=== PATIENT | male | born 1965 | race Caucasian/White ===

== ENCOUNTER 2018-12-15 09:35 | Emergency (ER) | payer OTHER, MEDICAID ==
[~2018-12-15] VITALS: Ht 185.4 cm; Wt 104.3 kg
[2018-12-15 09:37] VITALS: Ht 185.4 cm; Wt 104.3 kg
[2018-12-15 11:42] VITALS: BP 145/96
== END 2018-12-15 11:42 | disposition home or self-care (01) ==
LOC: ED 09:35
DX: S60.222A Contusion of left hand, initial encounter (principal); S60.221A Contusion of right hand, initial encounter; S00.83XA Contusion of other part of head, initial encounter; S09.8XXA Other specified injuries of head, initial encounter; I10 Essential (primary) hypertension; M19.90 Unspecified osteoarthritis, unspecified site; F10.10 Alcohol abuse, uncomplicated; W01.0XXA Fall on same level from slipping, tripping and stumbling without subsequent striking against object, initial encounter; Y93.89 Activity, other specified; Y92.89 Other specified places as the place of occurrence of the external cause; Y99.8 Other external cause status
CPT/HCPCS: G0480; Q0092